=== PATIENT | female | born 1940 | race Caucasian/White ===

== ENCOUNTER 2022-03-20 07:49 | Emergency (ER) | payer MEDICARE, OTHER ==
[2022-03-20] MEDS ORDERED: Meclizine 12.5 MG Tab PO ONE (08:13)
== END 2022-03-20 10:00 | disposition home or self-care (01) ==
LOC: JD.ED 07:49
DX: M46.92 Unspecified inflammatory spondylopathy, cervical region (principal); R42 Dizziness and giddiness; I10 Essential (primary) hypertension; F17.210 Nicotine dependence, cigarettes, uncomplicated; Z90.49 Acquired absence of other specified parts of digestive tract
CPT/HCPCS: 36415; 70450; 72125; 80053; 84484; 85025; 93005; 99284; A9270; 93010

== ENCOUNTER 2022-04-11 14:08 | Emergency (ER) | payer MEDICARE, OTHER ==
[2022-04-11] MEDS ORDERED: Sodium Chloride 0.9% 10 ML Syringe FLUSH PRN (14:32)
[2022-04-11] MEDS ORDERED: Sodium Chloride 0.9% 1,000 ML IV ONE (14:57)
== END 2022-04-11 17:20 | disposition home or self-care (01) ==
LOC: JD.ED 14:08
DX: R42 Dizziness and giddiness (principal); I10 Essential (primary) hypertension; Z79.899 Other long term (current) drug therapy; Z90.49 Acquired absence of other specified parts of digestive tract
CPT/HCPCS: 36415; 70450; 71045; 80053; 81001; 83735; 83880; 84484; 85025; 85610; 85730; 93005; 96360; 99284; A9270; J3490; J7030